=== PATIENT | male | born 1970 | race Two or more races ===

== ENCOUNTER 2018-04-30 08:28 | Emergency (ER) | payer MEDICAID, OTHER ==
[~2018-04-30] VITALS: Ht 185.4 cm; Wt 146.0 kg
[2018-04-30] MEDS ORDERED: NAPR-677 PO (08:38)
[2018-04-30] MEDS ORDERED: GABA-529 PO (08:38)
[2018-04-30 12:17] VITALS: BP 118/75
== END 2018-04-30 12:27 | disposition home or self-care (01) ==
LOC: ER 09:39
DX: S76.112A Strain of left quadriceps muscle, fascia and tendon, initial encounter (principal); S46.812A Strain of other muscles, fascia and tendons at shoulder and upper arm level, left arm, initial encounter; M54.9 Dorsalgia, unspecified; X50.0XXA Overexertion from strenuous movement or load, initial encounter; X50.3XXA Overexertion from repetitive movements, initial encounter; R03.0 Elevated blood-pressure reading, without diagnosis of hypertension; Y93.89 Activity, other specified; Y92.89 Other specified places as the place of occurrence of the external cause; Y99.0 Civilian activity done for income or pay; Z87.828 Personal history of other (healed) physical injury and trauma
CPT/HCPCS: 99283